=== PATIENT | female | born 1980 | race Caucasian/White ===

== ENCOUNTER 2023-10-04 09:55 | Emergency (ER) | payer BC, SELFPAY ==
[2023-10-04 10:00] VITALS: BP 158/84; PULSE 68; TEMP 36.9; O2SAT 100; BMI 29.1
--- NOTE | 2023-10-04 10:11 | ED_ITS ---
HPI - Nausea/Vomiting/Diarrhea General Chief complaint: Nausea/Vomiting/Diarrhea Stated complaint: NAUSEA/VOMITING Time Seen by Provider: 10/04/23 10:10 Source: patient Mode of arrival: walk-in Limitations: no limitations History of Present Illness HPI Narrative: This patient is here complaining of abdominal cramping and diarrhea. Symptoms started Wednesday morning. She went to work and started having some abdominal cramping. She prophylactically took Imodium. She then went home and has had numerous episodes of diarrhea throughout the entire weekend. She has nausea without vomiting. She is not running a fever. Past surgical history includes cholecystectomy, appendectomy and gastric bypass surgery. She says she normally has constipation after her gastric bypass and not any type of dumping syndrome. 2 weeks ago she took a course of Augmentin for sinus infection. She is not had any other symptoms of upper respiratory infection such as sore throat cough congestion runny nose or COVID symptoms are all negative. Related Data Home Medications ?Medication ?Instructions ?Recorded ?Confirmed No Known Home Medications 10/04/23 10/04/23 Allergies Allergy/AdvReac Type Severity Reaction Status Date / Time No Known Drug Allergies Allergy Verified 10/04/23 09:59 Exam Narrative Exam Narrative: Vital signs are stable she is not tachycardic. She does not appear ill or toxic. Examination her abdomen is soft and supple there is no guarding masses rebound or rigidity. There is no peritoneal findings. Her cramping discomfort is in the midline just below the umbilical area. She did not mention any type of urinary symptoms but we will check a urine as well. Overall hydration status appears adequate but based on her history we will do some lab test and initiate IV therapy. Constitutional Vital Signs, click to edit/add: Last Vital Signs Temp 98.4 F 10/04/23 10:00 Pulse 68 10/04/23 10:00 Resp 18 10/04/23 10:00 BP 158/84 H 10/04/23 10:00 Pulse Ox 100 10/04/23 10:00 O2 Del Method Room Air 10/04/23 10:00 Course Vital Signs Vital signs: Vital Signs Temperature 98.4 F 10/04/23 10:00 Pulse Rate 68 10/04/23 10:00 Respiratory Rate 18 10/04/23 10:00 Blood Pressure 158/84 H 10/04/23 10:00 Pulse Oximetry 100 10/04/23 10:00 Oxygen Delivery Method Room Air 10/04/23 10:00 Temperature 98.4 F 10/04/23 10:00 Pulse Rate 68 10/04/23 10:00 Respiratory Rate 18 10/04/23 10:00 Blood Pressure 158/84 H 10/04/23 10:00 Pulse Oximetry 100 10/04/23 10:00 Oxygen Delivery Method Room Air 10/04/23 10:00 MDM - Nausea/Vomiting/Diarrhea MDM Narrative Medical decision making narrative: Patient's laboratory studies are essentially unremarkable. She admits to the nursing staff that she has had previous elevation of her liver function test. We encouraged her to follow-up with her primary care doctor to evaluate that further. She is unable to provide a stool specimen to rule out C. difficile here. Will send her home with materials necessary to complete that assay. In the meantime she shows no evidence of dehydration. There is no ketones in her urine.s Lab Data Labs: Lab Results 10/04/23 10/04/23 Range/Units 10:05 10:10 WBC 6.6 (4.0-11.0) 10^3/uL RBC 3.72 L (4.20-5.40) 10^6/uL Hgb 11.7 L (12.0-16.0) g/dL Hct 34.6 L (36.0-48.0) % MCV 93.0 (81.0-99.0) fL MCH 31.5 (26.7-34.0) pg MCHC 33.8 (29.9-35.2) g/dL RDW 11.6 (11.0-15.0) % Plt Count 280 (150-450) 10^3/uL MPV 9.4 L (9.5-13.5) fL Neut % (Auto) 66.6 (43.0-75.0) % Lymph % (Auto) 22.4 (20.5-60.0) % [place] % (Auto) 6.5 (1.7-12.0) % Eos % (Auto) 3.3 (0.9-7.0) % Baso % (Auto) 0.9 (0.2-2.0) % Neut # (Auto) 4.4 (1.4-6.5) 10^3/uL Lymph # (Auto) 1.5 (1.2-3.8) 10^3/uL [place] # (Auto) 0.4 (0.3-0.8) 10^3/uL Eos # (Auto) 0.2 (0.0-0.7) 10^3/uL Baso # (Auto) 0.1 (0.0-0.1) 10^3/uL Abs Immat Gran (auto) 0.02 (0.00-0.03) 10^3/uL Imm/Tot Granulo (auto) 0.3 (0.0-0.5) % Sodium 141 (136-145) mmol/L Potassium 3.9 (3.5-5.1) mmol/L Chloride 105 (98-107) mmol/L Carbon Dioxide 27.7 (21.0-32.0) mmol/L Anion Gap 12.2 BUN 11.0 (7.0-18.0) mg/dL Creatinine 0.80 (0.55-1.02) mg/dL Est GFR ( Amer) >60 (>=60) Est GFR (Non-Af Amer) >60 (>=60) BUN/Creatinine Ratio 13.8 Glucose 91 (74-106) mg/dL Calcium 8.9 (8.5-10.1) mg/dL Total Bilirubin 0.4 (0.2-1.0) mg/dL AST 70 H (15-37) U/L ALT 74 H (14-59) U/L Alkaline Phosphatase 170 H (46-116) U/L Total Protein 6.5 (6.4-8.2) g/dL Albumin 3.2 L (3.4-5.0) g/dL Globulin 3.3 g/dL Albumin/Globulin Ratio 1.0 Urine Color Lt. yellow (YELLOW) Urine Clarity Clear (CLEAR) Urine pH 5.5 (5.0-9.0) Ur Specific [place] >=1.030 A (1.005-1.025) Urine Protein Negative (NEG/TRACE) mg/dL Urine Glucose (UA) Negative (NEGATIVE) mg/dL Urine Ketones Negative (NEGATIVE) mg/dL Urine Occult Blood Trace-i (NEGATIVE) Urine Nitrite Negative (NEGATIVE) Urine Bilirubin Negative (NEGATIVE) Urine Urobilinogen 0.2 (0.2-1.0) EU/dL Ur Leukocyte Esterase Negative (NEGATIVE) Urine RBC 0-2 (0-2) #/HPF Urine WBC None seen (NONE SEEN) #/HPF Ur Squamous Epith Cells Rare (NONE/RARE) #/LPF Urine Crystals None seen (None Seen) #/HPF Urine Bacteria None seen (NONE SEEN) #/HPF Urine Casts None seen (NONE SEEN) #/LPF Urine Mucus None seen (NONE SEEN) Discharge Plan Discharge Stand Alone Forms: Portal Instructions Chief Complaint: Nausea/Vomiting/Diarrhea Clinical Impression: Diarrhea Patient Disposition: Home, Self-Care Time of Disposition Decision: 11:47 Prescriptions / Home Meds: No Action No Known Home Medications Print Language: Martiniquais Additional Instructions: Return stool specimen here for C. difficile analysis as outpatient/may use [facility] Referrals: NIMO LANTIGUA [Primary Care Provider] - 1 week
[2023-10-04] MEDS: ONDANSETRON PF 4 MG/2 ML VIAL IV (10:27)
[2023-10-04] MEDS: 0.9 % SODIUM CHLORIDE 1,000 ML 999 ML IV (10:27)
[2023-10-04 10:35] LABS: Basophils Absolute Auto 0.1 10^3/uL (0.0-0.1); Basophils Percent Auto 0.9 % (0.2-2.0); Eosinophils Absolute Auto 0.2 10^3/uL (0.0-0.7); Eosinophils Percent Auto 3.3 % (0.9-7.0); Hematocrit 34.6 % (36.0-48.0); Hemoglobin 11.7 g/dL (12.0-16.0); Immature Granulocytes Abs Auto 0.02 10^3/uL (0.00-0.03); Immature Granulocytes Pct Auto 0.3 % (0.0-0.5); Lymphocytes Absolute Auto 1.5 10^3/uL (1.2-3.8); Lymphocytes Percent Auto 22.4 % (20.5-60.0); Mean Corpuscular HGB Conc 33.8 g/dL (29.9-35.2); Mean Corpuscular Hemoglobin 31.5 pg (26.7-34.0); Mean Platelet Volume 9.4 fL (9.5-13.5); Monocytes Absolute Auto 0.4 10^3/uL (0.3-0.8); Monocytes Percent Auto 6.5 % (1.7-12.0); Neutrophils Absolute Auto 4.4 10^3/uL (1.4-6.5); Neutrophils Percent Auto 66.6 % (43.0-75.0); Platelet Count 280 10^3/uL (150-450); Red Blood Count 3.72 10^6/uL (4.20-5.40); Red Cell Distribution Width 11.6 % (11.0-15.0); White Blood Count 6.6 10^3/uL (4.0-11.0)
[2023-10-04 10:36] LABS: Bilirubin Urine NEGATIVE (NEGATIVE); Blood Urine TRACE-I (NEGATIVE); Clarity Urine CLEAR (CLEAR); Color Urine LT. YELLOW (YELLOW); Glucose Urine UA NEGATIVE (NEGATIVE); Ketones Urine NEGATIVE (NEGATIVE); Leukocyte Esterase Urine NEGATIVE (NEGATIVE); Nitrite Urine NEGATIVE (NEGATIVE); Protein Urine NEGATIVE (NEG/TRACE); Specific Gravity Urine >=1.030 (1.005-1.025); Urine Microscopic Indicated YES; Urobilinogen Urine 0.2 EU/dL (0.2-1.0); pH Urine 5.5 (5.0-9.0)
[2023-10-04 10:44] LABS: Bacteria Urine NONE SEEN #/HPF (NONE SEEN); Mucus Urine NONE SEEN (NONE SEEN); RBC Urine 0-2 #/HPF (0-2); Squamous Epithelial Cell Urine RARE #/LPF (NONE/RARE); WBC Urine NONE SEEN #/HPF (NONE SEEN)
[2023-10-04 10:45] LABS: Cast Seen? NONE SEEN #/LPF (NONE SEEN); Crystals Seen? None Seen #/HPF (None Seen)
[2023-10-04 10:47] LABS: Alanine Aminotransferase 74 U/L (14-59); Albumin Level 3.2 g/dL (3.4-5.0); Alkaline Phosphatase 170 U/L (46-116); Anion Gap 12.2; Aspartate Amino Transferase 70 U/L (15-37); BUN Creatinine Ratio 13.8; Bilirubin Total 0.4 mg/dL (0.2-1.0); Calcium 8.9 mg/dL (8.5-10.1); Carbon Dioxide 27.7 mmol/L (21.0-32.0); Chloride 105 mmol/L (98-107); Estimated GFR (African America >60 (>=60); Estimated GFR (Non-African Ame >60 (>=60); Globulin 3.3 g/dL; Glucose 91 mg/dL (74-106); Potassium 3.9 mmol/L (3.5-5.1); Sodium 141 mmol/L (136-145); Total Protein 6.5 g/dL (6.4-8.2)
[2023-10-04 15:38] LABS: C. Difficile PCR NEGATIVE (NEGATIVE)
== END 2023-10-04 11:53 | disposition home or self-care (01) ==
PROVIDERS: Emergency Provider Emergency Medicine Emergency Medical Services; PCP Family Medicine
DX: R19.7 Diarrhea, unspecified (principal); Z90.49 Acquired absence of other specified parts of digestive tract; Z98.84 Bariatric surgery status
CPT/HCPCS: 36415; 80053; 81001; 85025; 87493; 96361; 96374; 99284

== ENCOUNTER 2023-10-05 09:05 | Outpatient (OUT) | payer BC, SELFPAY ==
--- NOTE | 2023-10-05 09:28 | XR_ITS ---
The [address] [address] Patient Name: MISBAH SALAZAR MRN: [id number] date: 1980 Sex: F Assigned Patient Location: [facility] Current Patient Location: [facility] Accession/Order Number: [id number] Exam Date: 10/05/2023 09:20 Report Date: 10/05/2023 10:23 At the request of: JAMARI ROUSE Procedure: XR abdomen min 2V EXAM: XR abdomen min 2V HISTORY: nausea and vomiting R11.2, diarrhea R19.7, abdominal pain COMPARISON: None. TECHNIQUE: AP view of the abdomen. FINDINGS: Nonobstructive bowel gas pattern is noted. There is no suspicious calcification. The osseous structures are intact. XR/XR abdomen min 2V IMPRESSION: Nonobstructive bowel gas pattern. Electronically authenticated by: ISMAEL HERRERA Date: 10/05/2023 10:23
== END 2023-10-05 09:06 | disposition home or self-care (01) ==
LOC: RAD 09:06
PROVIDERS: PCP Family Medicine; Visit Provider Nurse Practitioner Family
DX: R11.2 Nausea with vomiting, unspecified (principal); R19.7 Diarrhea, unspecified; R10.84 Generalized abdominal pain
CPT/HCPCS: 74019